=== PATIENT | female | born 1955 | race Caucasian/White ===

== ENCOUNTER → 2016-11-25 | Outpatient (CLI) | payer OTHER, SELFPAY ==
--- NOTE | 2016-11-26 08:24 | MRI ---
EXAM DESCRIPTION: MR LUMBAR SPINE WITHOUT IV CONTRAST CLINICAL HISTORY: 61 y/o F, RADICULOPATHY, LUMBAR REGION COMPARISON: None TECHNIQUE: Multi planar, multi sequence imaging of the lumbar spine was acquired without IV contrast. FINDINGS: Vertebral body height, AP alignment and marrow signal are unremarkable. Mild disc desiccation without height loss noted at all levels. Anterior osteophytes are seen from the lower thoracic spine through L2 through 3. L1 to. No spinal canal or neural foraminal narrowing. L2-3: Mild facet degeneration. No spinal canal or neural foraminal narrowing. L3-4: Mild facet degeneration. No spinal canal or neural foraminal narrowing. L4-5: Mild facet degeneration. No spinal canal or neural foraminal narrowing. L5-S1: There is narrowing of the left lateral recess due to an asymmetric to the left disc bulge. The midline diameter spinal canal is unremarkable. The right neural foramen is unremarkable. IMPRESSION: Today's exam demonstrates neural foraminal narrowing at L5-S1 on the left with possible exiting left L5 nerve root contact. This could account for left L5 radiculopathy, if the patient is symptomatic. No additional spinal canal narrowing or neural foraminal narrowing at any level. Electronically signed by: Sathya Pereira MD 11/26/2016 08:22
== END | disposition home or self-care (01) ==
LOC: MRI 07:58
PROVIDERS: ATTEND Family Medicine
DX: M54.16 Radiculopathy, lumbar region (principal)

== ENCOUNTER 2018-04-06 05:42 | Day surgery (SDC) | payer OTHER ==
--- NOTE | 2018-04-03 20:58 | SSS ---
CHIEF COMPLAINT: Need for screening colonoscopy. HISTORY OF PRESENT ILLNESS: Ms. Shrestha is a 62 year-old female who presented to my office for routine followup. It was noted that she was due for a colonoscopy. She reports that she had a colonoscopy approximately 10 years ago by her recollection, and it was negative for any polyps. She was told at that time that she would need to repeat it in 10 years. Risks and benefits were discussed and she is agreeable with proceeding. PAST MEDICAL HISTORY: 1. Keloid formation. She had a tonsillectomy at age 4 and subsequently began to form keloids, and as a consequence has difficulty breathing through her nose. 2. History of possible mitral valve disease. However, an echocardiogram in December 2015 showed normal valves and chambers. 3. Anxiety. 4. Vitamin D deficiency. PAST SURGICAL HISTORY: 1. Tonsillectomy at age 4 in 1959. 2. Scar revision in 1974. CURRENT MEDICATIONS: 1. Celexa. 2. CombiPatch. 3. Singulair. 4. Vitamin B12. 5. Vitamin D. 6. Calcium. 7. Baby aspirin. ALLERGIES: MACROLIDES WITH THE EXCEPTION OF ZITHROMAX. TAPE GIVES HER BLISTERS BUT SHE IS NOT SURE WHAT KIND OF TAPE. FAMILY HISTORY: Father has hypertension and had coronary artery disease with a bypass at age 70. He also had a history of melanoma and a stroke. Mother at 69 from pancreatic cancer. She also formed keloids. She had adhesions secondary to an appendicitis. She has 1 brother, Patrick Burks, with hypertension and coronary artery disease. She has 3 sons, Shiva with asthma, Davon with keloids and Arvind has mild cerebral palsy. She has 1 daughter, Jessy who has keloids, asthma and vertebral compression fractures and herniated discs. SOCIAL HISTORY: She is retired. She was previously employed as an WORSHIP PASTOR. She is with 4 children. She has never smoked or consumed alcohol. REVIEW OF SYSTEMS: Negative except as per the History of Present Illness. PHYSICAL EXAMINATION: VITAL SIGNS: Blood pressure 112/60, height 5' 8",weight 124. GENERAL: She is awake and alert in no acute distress. HEENT: Unremarkable. NECK: Supple. CHEST: Lungs are clear. CARDIOVASCULAR: Regular rate and rhythm without appreciable murmurs. ABDOMEN: Soft, non-tender. RECTAL: Exam is deferred until time of colonoscopy. EXTREMITIES: Without edema. NEUROLOGIC: Nonfocal. ASSESSMENT: 1. Need for screening colonoscopy. PLAN: Colonoscopy on 04/06/18, that is this coming Friday. #[id number] [facility]
[2018-04-06] MEDS ORDERED: PROPOFOL 200 MG/20 ML VIAL IV ONE (05:43)
[2018-04-06] MEDS ORDERED: LIDOCAINE 1% 10 ML VIAL INJ ONE (05:43)
[2018-04-06] MEDS ORDERED: LACTATED RINGERS 1,000 ML ONE (06:49)
[2018-04-06] MEDS ORDERED: MIDAZOLAM INJ 2 MG/2 ML VIAL ONE (07:13)
[2018-04-06] MEDS ORDERED: fentaNYL CITRATE INJ 50 MCG/ML AMP ONE (07:13)
[2018-04-06] MEDS ORDERED: ELECTROLYTE-A 0 ML IVS ONE (08:06)
[2018-04-06 09:34] VITALS: BP 105/63; TEMP 97; O2SAT 96
--- NOTE | 2018-04-06 09:34 | OP ---
DATE OF PROCEDURE: 04/06/18 PREOPERATIVE DIAGNOSIS: 1. Need for screening colonoscopy. POSTOPERATIVE DIAGNOSIS: 1. Normal colonoscopy to the cecum. 2. Probable retroverted uterus versus other noted on rectal exam. PROCEDURE: 1. Colonoscopy. SURGEON: Nishant Bryan MD. ESTIMATED BLOOD LOSS: None. COMPLICATIONS: No immediate complications. ANESTHESIA: Propofol 240 mg, fentanyl 1 mL, Versed 1 mg administered intravenously via Tulio Comer CRNA. TECHNIQUE: After informed consent was obtained from the patient, the patient was taken to the Endoscopy Suite and placed in the left lateral decubitus position. Supplemental oxygen was administered via facemask throughout the procedure. Vital signs were monitored throughout the procedure. After adequate sedation was obtained, digital rectal examination was performed, which was normal with the exception of an extrinsic mass to the anterior side of the rectum that was likely a retroverted uterus. The colonoscope was then advanced into the patient's rectum and up through the sigmoid, descending, transverse and ascending colon to the level of the cecum. There was some looping experienced. The loop was worked out. The cecum was reached, photographed and the terminal ileum was entered and photographed. The colonoscope was then slowly withdrawn taking great care to try to visualize all gordillo of the colon in 360 degree fashion. Overall, the bowel prep was quite good. There were no abnormalities throughout the entire colon. In the rectum, the colonoscope was retroflexed upon itself. This appeared normal. The colonoscope was then unretroflexed and air was suctioned out of the patient's rectum. The patient tolerated the procedure well and was taken back to the recovery area in good condition. PLAN: Followup in my office in 7 to 10 days to discussed the retroverted uterus versus other. I will try to review her records to see if she has had an abdominal sonogram or CT scan recently that shows this. If not, we may consider a pelvic or abdominal sonogram. She will need a repeat colonoscopy in 8 to 10 years for routine screening. She will need it sooner only if symptoms dictate. #[id number] [facility]
== END 2018-04-06 09:25 | disposition home or self-care (01) ==
LOC: AMB 05:42
PROVIDERS: ATTEND Family Medicine
DX: Z12.11 Encounter for screening for malignant neoplasm of colon (principal); F41.9 Anxiety disorder, unspecified; E55.9 Vitamin D deficiency, unspecified; Z80.0 Family history of malignant neoplasm of digestive organs; Z79.82 Long term (current) use of aspirin; Z79.899 Other long term (current) drug therapy; Z88.1 Allergy status to other antibiotic agents
CPT/HCPCS: 00812; 45378; J2250; J3010; J3490; J7120

== ENCOUNTER → 2018-04-14 | Outpatient (CLI) | payer OTHER | LOC: GMAL 10:26 | PROVIDERS: ATTEND Family Medicine | DX: Z79.899 Other long term (current) drug therapy (principal) ==

== ENCOUNTER → 2018-04-16 | Outpatient (CLI) | payer OTHER ==
--- NOTE | 2018-04-16 12:47 | US ---
EXAM DESCRIPTION: Pelvis Transvaginal CLINICAL HISTORY: 62 years Female, ABDOMINAL PAIN COMPARISON: None. TECHNIQUE: Multiple transverse and longitudinal static sonographic images of the pelvis were obtained transvaginally. FINDINGS: The uterus is anteverted in orientation and measures 8.5 x 4.1 x 6 cm. 2 fibroids are identified in the fundus and anterior body measuring 2.6 x 1.8 x 2.5 cm and 2 x 1.4 x 1.8 cm. The endometrial stripe measures 2.4 mm in thickness. The right ovary measures 1.5 x 1.8 x 1.6 cm and the left ovary measures 2 x 1.6 x 1.2 cm. Both ovaries appear normal. No evidence of free fluid. IMPRESSION: 2 fibroids are identified in the uterine fundus and anterior body as detailed above. Electronically signed by: Sachi Antonio MD 04/16/2018 12:46 PM CDT
== END ==
LOC: US 08:14
PROVIDERS: ATTEND Family Medicine
DX: R19.00 Intra-abdominal and pelvic swelling, mass and lump, unspecified site (principal); D25.9 Leiomyoma of uterus, unspecified

== ENCOUNTER → 2019-03-22 | Outpatient (CLI) | payer OTHER | LOC: GMAL 11:42 | PROVIDERS: ATTEND Family Medicine | DX: Z00.01 Encounter for general adult medical examination with abnormal findings (principal) ==

== ENCOUNTER → 2019-06-02 | Outpatient (CLI) | payer OTHER ==
--- NOTE | 2019-06-04 09:34 | MAM ---
EXAM DESCRIPTION: 3D Screening BILATERAL : Digital Mammography. CLINICAL HISTORY: 63 years Female ANNUAL SCREENING . No complaints. No personal history of breast cancer. Remote family history of breast cancer. Childbirth. Postmenopausal 10+ years. Currently on HRT. Lifetime risk of developing breast cancer (Tyrer-Cuzick model)(%): 4.7. COMPARISON: 2-D digital screening bilateral mammography 05/30/2014. No prior reports available. TECHNIQUE: Bilateral CC and MLO projection full-field images, digital tomosynthesis mammographic technique. Bilateral digital 2-D full-field MLO images. CAD not available for tomosynthesis or 2-D images. FINDINGS: The breast parenchymal density pattern is: Heterogeneously dense breast tissue, which may obscure small masses. No skin thickening or nipple retraction. Bilateral groups of microcalcifications in the central breasts, associated with the denser fibroglandular tissues. Calcifications on the prior study but not as well seen. 10:00 sector, 4 cm from the nipple upper-outer quadrant middle third right breast. Adjacent to the posterior nipple line in the middle third of the left breast. 4 cm from the nipple. No new focal, stellate mass or density, focal asymmetry bilateral breasts. IMPRESSION: BI-RADS CATEGORY: 0 - INCOMPLETE- Need additional imaging evaluation. FOLLOW-UP: Recall for additional imaging: Bilateral LM tomosynthesis full Field. Bilateral spot magnification regions of interest CC and LM projections. Optional targeted bilateral breast ultrasound if indicated by diagnostic images.. Written communication concerning the IMPRESSION and Follow-up, will be mailed to the patient and referring health care provider. Electronically signed by: Chance Sim MD 06/04/2019 9:33 AM CDT
== END ==
LOC: MAMMO 09:03
PROVIDERS: ATTEND Family Medicine
DX: Z12.31 Encounter for screening mammogram for malignant neoplasm of breast (principal)

== ENCOUNTER → 2019-06-29 | Outpatient (CLI) | payer OTHER | LOC: GMAL 10:53 | PROVIDERS: ATTEND Family Medicine | DX: D51.3 Other dietary vitamin B12 deficiency anemia (principal); Z79.899 Other long term (current) drug therapy ==

== ENCOUNTER → 2019-09-29 | Outpatient (CLI) | payer MEDICARE, OTHER ==
--- NOTE | 2019-09-29 14:14 | US ---
EXAM DESCRIPTION: Pelvic,Non-OB: Ultrasound. CLINICAL HISTORY: 64 years Female premenopausal bleeding COMPARISON: Transvaginal pelvic ultrasound March 2018. TECHNIQUE: Transcutaneous scanning through the urine filled bladder. Endovaginal scanning. Sheth-scale and Doppler modes. FINDINGS: Uterus 9.0 x 5.9 x 5.0 cm. 139.9 mL. Endometrium 3.2-6.2 mm.. Myometrium heterogeneous. Hypoechoic mass superior posterior fundus measuring 2.7 x 1.8 x 2.4 cm. Second hypoechoic mass measures 2.5 x 2.3 x 1.9 cm. Uterus not retroverted. Cervix unremarkable. Cul-de-sac: No fluid.. Right ovary 1.9 x 1.7 x 1.2 cm. 1.9 mL. Normal color Doppler vascularity. No follicles or cysts. No adnexal mass or free fluid. Left ovary 1.9 x 1.9 x 1.2 cm. 2.2 mL. Normal color Doppler vascularity. No follicles or cysts. No adnexal mass or free fluid. IMPRESSION: 1. 1 of the fibroids has enlarged since the prior study. Uterus is also slightly larger, but maintains normal orientation. No endometrial thickening or fluid. 2. Bilateral ovaries are unremarkable in appearance and vascularity. No adnexal mass or fluid. Electronically signed by: Chance Sim MD 09/29/2019 2:12 PM [facility]
== END ==
LOC: US 08:58
PROVIDERS: ATTEND Family Medicine
DX: N95.0 Postmenopausal bleeding (principal); D25.9 Leiomyoma of uterus, unspecified